=== PATIENT | male | born 1990 | race Caucasian/White ===

== ENCOUNTER → 2021-09-07 | Outpatient (CLI) | payer OTHER ==
[~2021-09-07] MED LIST: ALBU90I INH; ALBU90OI INH; AMOX500 PO; AZIT250 PO; CYCL10 PO; ERYT.5TO OU; HYDACE5 PO; IBUP800 PO; NAPR500 PO; PENVK500 PO; PRED10 PO; PRED20 PO; PROCODE120 PO; RXCYCL10 PO; RXHYDACE PO; SULF10OPSA OU; TRIA80TC TOP
[2021-09-07 11:25] LABS: Source, Urine Clean Catch
[2021-09-07 12:12] LABS: Appearance, Urine Clear (Clear); Bilirubin, Urine Neg (Neg); Blood, Urine 2+ (Neg); Color, Urine Yellow (P-Yellow); Glucose Qualitative, Urine Neg (Neg); Ketones, Urine Neg (Neg); Leukocyte Esterase, Urine Neg (Neg); Nitrite, Urine Neg (Neg); Protein, Urine Neg (Neg); Urobilinogen, Urine NORM (Normal)
[2021-09-07 12:34] LABS: Bacteria Rare /hpf; Squamous Epithelial Cells Rare /hpf (Few); White Blood Cells, Urine 0-2 /hpf (0-5)
== END | disposition home or self-care (01) ==
LOC: LAB SHORT 11:23
PROVIDERS: Nurse Practitioner Family
DX: Z00.00 Encounter for general adult medical examination without abnormal findings (principal); I10 Essential (primary) hypertension
CPT/HCPCS: 81001